=== PATIENT | male | born 1975 | race Caucasian/White ===

== ENCOUNTER 2022-05-09 12:15 | Emergency (ER) | payer OTHER, SELFPAY ==
[2022-05-09 12:25] VITALS: BP 158/92; PULSE 72; RESP 18; TEMP 36.7; O2SAT 97; BMI 36.6
--- NOTE | 2022-05-09 12:42 | CRLHL7_ITS ---
For Patients: As a result of the Century Cures Act, medical imaging exams and procedure reports are released immediately into your electronic medical record. You may view this report before your referring provider. If you have questions, please contact your health care provider. INDICATION: Right lower quadrant abdomen pain. TECHNIQUE: CT abdomen and pelvis acquired with 98 cc Isovue 370 IV contrast. COMPARISON: None. FINDINGS: Lower chest: Unremarkable. Liver: Unremarkable. Normal in size and attenuation. No suspicious masses. Gallbladder and bile ducts: Unremarkable. No stones or inflammation. No biliary dilatation. Pancreas: Unremarkable. No mass or inflammation. Spleen: Unremarkable. Normal in size. No masses. Adrenal glands: Unremarkable. No nodules. Kidneys: Unremarkable. No suspicious masses, stones, or hydronephrosis. GI tract: Unremarkable. Normal in caliber. No sign of mass or inflammation. Appendix appears normal. Vasculature: Abdominal aorta is normal in caliber. Mesenteric arteries are patent. Lymph nodes: No lymphadenopathy. Peritoneum/Abdominal Wall: There is a small focal area of inflammation in the right lateral mentum posterior to the appendix as demonstrated on series 2, image 73. No intra-abdominal free air or fluid collection. Pelvis: Unremarkable. Bones: Unremarkable for age. IMPRESSION: The appendix appears normal. However, there is a focal area of omental inflammation adjacent to the tip of the appendix. Omental infarct is favored over a primary appendicitis. This is a self-limiting entity which should resolve over the course of a few days. However, if the patient`s symptoms persist or worsen, repeat CT exam may be helpful to evaluate for a developing appendicitis. Remainder of the exam is unremarkable. Please note that all CT scans at this facility use dose modulation, iterative reconstruction, and/or weight-based dosing when appropriate to reduce radiation dose to as low as reasonably achievable. Dictated by Johnny Pop MD @ 05/09/2022 2:36:31 PM (Electronically Signed)
[2022-05-09 13:25] LABS: Lactate* 0.9 mmol/L (0.5-1.9)
[2022-05-09 13:29] LABS: Basophils Absolute Auto 0.03 K/uL (0.00-0.30); Basophils Percent Auto 0.3 % (0.0-3.0); Eosinophils Absolute Auto 0.26 K/uL (0.00-0.50); Eosinophils Percent Auto 2.9 % (0.0-7.0); Hematocrit 46.3 % (37.0-53.0); Hemoglobin* 15.9 gm/dL (13.5-17.5); Immature Granulocytes Abs Auto 0.01 K/uL (0.00-0.30); Lymphocytes Absolute Auto 2.17 K/uL (0.90-2.90); Lymphocytes Percent Auto 23.9 % (20-44); Mean Corpuscular HGB Conc 34 gm/dL (32-36); Mean Corpuscular Hemoglobin 31 pg (26-34); Mean Corpuscular Volume 89 fL (80-100); Neutrophils Absolute Auto 5.87 K/uL (1.7-7.0); Neutrophils Percent Auto 64.8 % (42.0-72.0); Platelet Count* 231 K/uL (140-440); Red Blood Count 5.21 m/uL (4.30-5.90); White Blood Count* 9.07 K/uL (4.50-11.00)
--- NOTE | 2022-05-09 13:49 | ED_ITS ---
HPI - General Adult General Chief complaint: Abdominal Pain Stated complaint: Abdominal pain Time Seen by Provider: 05/09/22 12:33 Source: patient Mode of arrival: ambulatory Limitations: no limitations History of Present Illness HPI narrative: 47-year-old male coming in today complaining of right lower quadrant abdominal pain that is going on day 3 now. He states the pain started off as more generalized but now sits in the right lower quadrant and does not radiate. Nothing seems to make it better. Moving makes it worse. He states that he continues to feel hungry and has been eating normally. No nausea or vomiting. Last bowel movement was yesterday and was normal. No urinary symptoms such as increased frequency, urgency or dysuria. No fevers or chills. He denies intra- abdominal surgeries in the past. Does not see a physician. Related Data Home Medications Medication Instructions Recorded Confirmed No Known Home Medications 05/09/22 05/09/22 Allergies Allergy/AdvReac Type Severity Reaction Status Date / Time No Known Drug Allergies Allergy Verified 05/09/22 13:49 Review of Systems Status of ROS: Reports: 10 or more systems reviewed and unremarkable except as noted in History and below Exam Narrative: Exam Narrative: Overweight, well-developed patient in no acute distress. Alert and oriented. Answers questions appropriately. Mood and affect are appropriate. Thoughts are goal oriented and rational. No tangential or magical thinking noted. Patient speaks in full sentences without needing to catch their breath. HEENT: Normocephalic atraumatic. Pupils are equally round reactive to light. Extraocular muscles are intact. Conjunctivae are moist without any icterus noted. Moist mucous membranes. Posterior pharynx is normal. Neck is soft without any lymphadenopathy or thyromegaly. No masses are appreciated. Cardiovascular: Heart is regular rate and rhythm S1 and S2 are present without any murmurs. Lungs: Clear to auscultation bilaterally no wheezes rhonchi or rales are appreciated. Patient takes deep breaths without any discomfort. Abdomen: Soft and nondistended with normal bowel sounds. No guarding or rebound. No masses or organomegaly appreciated. He does have right lower quadrant tenderness. Negative Morgan sign. Extremities: Bilateral lower extremities are without edema. Normal DP and PT pulses. Skin: Well perfused without any obvious rashes. Const: Vital Signs, click to edit/add: Vital Signs - 24 hr 05/09/22 12:25 Temperature 98.1 F Pulse Rate [Pulse Oximeter] 72 Respiratory Rate 18 Blood Pressure [Ri ght Upper Arm] 158/92 H Pulse Oximetry 97 Oxygen Delivery Me thod Room Air Course Course Hospital Course: Labs are unremarkable. Imaging showed normal appendix with a probable omental infarction. Vital Signs Vital signs: Initial Vital Signs Temperature 98.1 F 05/09/22 12:25 Temperature Source Temporal Artery Scan 05/09/22 12:25 Pulse Rate 72 05/09/22 12:25 Respiratory Rate 18 05/09/22 12:25 Blood Pressure 158/92 H 05/09/22 12:25 Blood Pressure Mean 114 05/09/22 12:25 Blood Pressure Position Supine 05/09/22 12:25 Pulse Oximetry 97 05/09/22 12:25 Oxygen Delivery Method 05/09/22 12:25 Vital Signs Temperature 98.1 F 05/09/22 12:25 Pulse Rate 72 05/09/22 12:25 Respiratory Rate 18 05/09/22 12:25 Blood Pressure 158/92 H 05/09/22 12:25 Pulse Oximetry 97 05/09/22 12:25 Oxygen Delivery Method 05/09/22 12:25 Temperature 98.1 F 05/09/22 12:25 Pulse Rate 72 05/09/22 12:25 Respiratory Rate 18 05/09/22 12:25 Blood Pressure 158/92 H 05/09/22 12:25 Pulse Oximetry 97 05/09/22 12:25 Oxygen Delivery Method 05/09/22 12:25 Medical Decision Making MDM Narrative Medical decision making narrative: 47-year-old male with abdominal pain likely secondary to an omental infarction. Discussed symptomatic treatment and be self limited nature of this pathology. We discussed reasons to return to the ER. Patient was agreeable and had no other questions. Lab Data Lab results reviewed: Yes I reviewed the patient's lab results Labs: Lab Results 05/09/22 05/09/22 05/09/22 Range/Units 13:15 13:15 13:15 WBC 9.07 (4.50-11.00) K/uL RBC 5.21 (4.30-5.90) m/uL Hgb 15.9 (13.5-17.5) gm/dL Hct 46.3 (37.0-53.0) % MCV 89 (80-100) fL MCH 31 (26-34) pg MCHC 34 (32-36) gm/dL RDW Coeff of Imelda 13.0 (11.5-15.5) % Plt Count 231 (140-440) K/uL Neut % (Auto) 64.8 (42.0-72.0) % Lymph % (Auto) 23.9 (20-44) % [place] % (Auto) 8.0 (0.0-11.0) % Eos % (Auto) 2.9 (0.0-7.0) % Baso % (Auto) 0.3 (0.0-3.0) % Neut # (Auto) 5.87 (1.7-7.0) K/uL Lymph # (Auto) 2.17 (0.90-2.90) K/uL [place] # (Auto) 0.70 (0.00-0.90) K/UL Eos # (Auto) 0.26 (0.00-0.50) K/uL Baso # (Auto) 0.03 (0.00-0.30) K/uL Abs Immat Gran (auto) 0.01 (0.00-0.30) K/uL ESR 2 (2-15) mm/hr Sodium 138 (135-149) mmol/L Potassium 4.5 (3.6-5.1) mmol/L Chloride 105 (96-114) mmol/L Carbon Dioxide 23 (20-32) mmol/L BUN 17 (5-24) mg/dL Creatinine 0.8 (0.5-1.5) mg/dL Estimated Creat Clear 103.01 Estimated GFR 110 ml/min Glucose 96 (60-115) mg/dL Lactate (0.5-1.9) mmol/L Calcium 9.0 (8.4-10.6) mg/dL Total Bilirubin (0.1-1.5) mg/dL Direct Bilirubin (0.0-0.5) mg/dL AST (12-35) U/L ALT (4-50) U/L Alkaline Phosphatase (40-150) U/L C-Reactive Protein < 0.5 L (0.5-1.0) mg/dL Total Protein (6.0-8.3) g/dL Albumin (3.3-5.0) g/dL Lipase (23-300) U/L Urine Color (Yellow) Urine Appearance (Clear) Urine pH (5.0-8.5) Ur Specific [place] (1.000-1.030) Urine Protein (Negative) Urine Glucose (UA) (Negative) Urine Ketones (Negative) Urine Blood (Negative) Urine Nitrite (Negative) Urine Bilirubin (Negative) Urine Urobilinogen (0.2-1.0) Ur Leukocyte Esterase (Negative) Urine RBC (0-2) Urine WBC (0-5) Ur Squamous Epith Cells (None-Few) Urine Bacteria (None) 05/09/22 05/09/22 05/09/22 Range/Units 13:15 13:15 13:50 WBC (4.50-11.00) K/uL RBC (4.30-5.90) m/uL Hgb (13.5-17.5) gm/dL Hct (37.0-53.0) % MCV (80-100) fL MCH (26-34) pg MCHC (32-36) gm/dL RDW Coeff of [place] (11.5-15.5) % Plt Count (140-440) K/uL Neut % (Auto) (42.0-72.0) % Lymph % (Auto) (20-44) % [place] % (Auto) (0.0-11.0) % Eos % (Auto) (0.0-7.0) % Baso % (Auto) (0.0-3.0) % Neut # (Auto) (1.7-7.0) K/uL Lymph # (Auto) (0.90-2.90) K/uL [place] # (Auto) (0.00-0.90) K/UL Eos # (Auto) (0.00-0.50) K/uL Baso # (Auto) (0.00-0.30) K/uL Abs Immat Gran (auto) (0.00-0.30) K/uL ESR (2-15) mm/hr Sodium (135-149) mmol/L Potassium (3.6-5.1) mmol/L Chloride (96-114) mmol/L Carbon Dioxide (20-32) mmol/L BUN (5-24) mg/dL Creatinine (0.5-1.5) mg/dL Estimated Creat Clear Estimated GFR ml/min Glucose (60-115) mg/dL Lactate 0.9 (0.5-1.9) mmol/L Calcium (8.4-10.6) mg/dL Total Bilirubin 0.6 (0.1-1.5) mg/dL Direct Bilirubin 0.2 (0.0-0.5) mg/dL AST 29 (12-35) U/L ALT 30 (4-50) U/L Alkaline Phosphatase 74 (40-150) U/L C-Reactive Protein (0.5-1.0) mg/dL Total Protein 7.6 (6.0-8.3) g/dL Albumin 4.4 (3.3-5.0) g/dL Lipase 91 (23-300) U/L Urine Color Yellow (Yellow) Urine Appearance Clear (Clear) Urine pH 5.5 (5.0-8.5) Ur Specific [place] >= 1.030 (1.000-1.030) Urine Protein Negative (Negative) Urine Glucose (UA) Negative (Negative) Urine Ketones Negative (Negative) Urine Blood Negative (Negative) Urine Nitrite Negative (Negative) Urine Bilirubin Negative (Negative) Urine Urobilinogen 0.2 (0.2-1.0) Ur Leukocyte Esterase Negative (Negative) Urine RBC 0-2 (0-2) Urine WBC 0-2 (0-5) Ur Squamous Epith Cells Few (None-Few) Urine Bacteria None (None) Imaging Data CT scan - abdomen: Attestation: I have reviewed the pertinent imaging results. Radiologist's impression: FINDINGS: Lower chest: Unremarkable. Liver: Unremarkable. Normal in size and attenuation. No suspicious masses. Gallbladder and bile ducts: Unremarkable. No stones or inflammation. No biliary dilatation. Pancreas: Unremarkable. No mass or inflammation. Spleen: Unremarkable. Normal in size. No masses. Adrenal glands: Unremarkable. No nodules. Kidneys: Unremarkable. No suspicious masses, stones, or hydronephrosis. GI tract: Unremarkable. Normal in caliber. No sign of mass or inflammation. Appendix appears normal. Vasculature: Abdominal aorta is normal in caliber. Mesenteric arteries are patent. Lymph nodes: No lymphadenopathy. Peritoneum/Abdominal Wall: There is a small focal area of inflammation in the right lateral mentum posterior to the appendix as demonstrated on series 2, image 73. No intra-abdominal free air or fluid collection. Pelvis: Unremarkable. Bones: Unremarkable for age. IMPRESSION: The appendix appears normal. However, there is a focal area of omental inflammation adjacent to the tip of the appendix. Omental infarct is favored over a primary appendicitis. This is a self-limiting entity which should resolve over the course of a few days. However, if the patient`s symptoms persist or worsen, repeat CT exam may be helpful to evaluate for a developing appendicitis. Remainder of the exam is unremarkable. Discharge Plan Discharge Clinical Impression: Abdominal pain, Omental infarction Patient Disposition: Home, Self-Care Condition: Stable Instructions: Abdominal Pain (ED) Additional Instructions: This is a self-limited condition that will resolve itself. Okay to take ibuprofen or Tylenol as needed for discomfort. Expect pain to last 7-10 days. Return to the ER if you start experiencing fevers or vomiting. Prescriptions: No Action No Known Home Medications Follow Up/Referrals: Farrukh Boss MD [Primary Care Provider] - Stand Alone Forms: Motility Count Info Instructions
[2022-05-09 13:50] LABS: Albumin* 4.4 g/dL (3.3-5.0)
[2022-05-09 13:51] LABS: Slide Review Reflex No
[2022-05-09 13:53] LABS: Alanine Aminotransferase* 30 U/L (4-50); Alkaline Phosphatase* 74 U/L (40-150); Aspartate Amino Transferase* 29 U/L (12-35); Bilirubin Direct* 0.2 mg/dL (0.0-0.5); Bilirubin Total* 0.6 mg/dL (0.1-1.5); Lipase* 91 U/L (23-300); Total Protein* 7.6 g/dL (6.0-8.3)
[2022-05-09 14:03] LABS: Appearance Urine Clear (Clear); Bilirubin Urine Negative (Negative); Blood Urine Negative (Negative); Color Urine Yellow (Yellow); Glucose Urine Negative (Negative); Ketones Urine Negative (Negative); Leukocyte Esterase Urine Negative (Negative); Nitrite Urine Negative (Negative); Protein Urine Negative (Negative); Specific Gravity Urine >= 1.030 (1.000-1.030); Urobilinogen Urine 0.2 (0.2-1.0); pH Urine 5.5 (5.0-8.5)
[2022-05-09 14:08] LABS: Chloride* 105 mmol/L (96-114)
[2022-05-09 14:09] LABS: Potassium* 4.5 mmol/L (3.6-5.1); Sodium* 138 mmol/L (135-149)
[2022-05-09 14:11] LABS: Creatinine* 0.8 mg/dL (0.5-1.5); Est. Creatinine Clearance* 103.01; Estimated Glomerular Filt Rate 110 ml/min
[2022-05-09 14:12] LABS: Blood Urea Nitrogen* 17 mg/dL (5-24); Carbon Dioxide* 23 mmol/L (20-32); Glucose* 96 mg/dL (60-115)
[2022-05-09 14:14] LABS: RBC Urine 0-2 (0-2); WBC Urine 0-2 (0-5)
[2022-05-09 14:15] LABS: Squamous Epithelial Cell Urine Few (None-Few)
[2022-05-09 14:34] LABS: C Reactive Protein* < 0.5 mg/dL (0.5-1.0)
[2022-05-09 14:38] LABS: Erythrocyte SedimentationRate* 2 mm/hr (2-15)
== END 2022-05-09 15:22 | disposition home or self-care (01) ==
PROVIDERS: Emergency Provider Family Medicine; PCP Family Medicine
DX: K55.069 Acute infarction of intestine, part and extent unspecified (principal); R10.31 Right lower quadrant pain
CPT/HCPCS: 36415; 74177; 80048; 80076; 81001; 83605; 83690; 85025; 85651; 86140; 87086; 99284; Q9967